=== PATIENT | male | born 1995 | race Caucasian/White ===

== ENCOUNTER 2016-08-14 21:03 | Emergency (ER) | payer SELFPAY ==
[~2016-08-14] VITALS: Ht 165.1 cm; Wt 72.0 kg
[2016-08-15 02:44] VITALS: BP 120/75
== END 2016-08-15 03:38 | disposition home or self-care (01) ==
LOC: ER 21:04
DX: T16.1XXA Foreign body in right ear, initial encounter (principal); X58.XXXA Exposure to other specified factors, initial encounter; Y93.89 Activity, other specified; Y92.89 Other specified places as the place of occurrence of the external cause; Y99.8 Other external cause status
CPT/HCPCS: 99283; X7700; Z7610

== ENCOUNTER 2018-02-24 01:03 | Emergency (ER) | payer MEDICAID ==
[~2018-02-24] VITALS: Ht 154.9 cm; Wt 79.1 kg
[2018-02-24] MEDS ORDERED: KETOROLAC 30MG/ML VIAL IV STA (02:55)
[2018-02-24] MEDS ORDERED: MAGNESIUM/ALUMINUM HYDROXIDE/SIMETHICONE 30ML UDC PO STA (02:55)
[2018-02-24] MEDS ORDERED: VISCOUS LIDOCAINE 2% 15 ML UDC PO STA (02:55)
[2018-02-24 03:25] LABS: BASOPHILS % 0.7 % (0.0-2.0); EOSINOPHILS % 1.3 % (0.0-5.0); HEMATOCRIT. 44.8 % (42.0-52.0); HEMOGLOBIN. 15.3 g/dL (14.0-18.0); LYMPHOCYTES % 33.4 % (20.0-50.0); MEAN CORPUSCULAR HEMOGLOBIN 32.5 pg (28.0-32.0); MEAN CORPUSCULAR VOLUME 95.1 fL (80.0-94.0); NEUTROPHILS % 55.6 % (40.0-76.0); PLATELET 289 x1000/uL (130-400); RED BLOOD CELL COUNT 4.71 mill/uL (4.7-6.1); RED CELL DISTRIBUTION WIDTH 13.2 % (11.6-14.6)
[2018-02-24 03:29] LABS: CLARITY URINE CLEAR (CLEAR); COLOR URINE YELLOW (YELLOW); KETONES URINE NEGATIVE (NEGATIVE); LEUKOCYTE ESTERASE URINE TRACE (NEGATIVE); NITRITE URINE NEGATIVE (NEGATIVE); OCCULT BLOOD URINE NEGATIVE (NEGATIVE); PH URINE 5.5 (4.5-8.0); PROTEIN URINE NEGATIVE (NEGATIVE); SPECIFIC GRAVITY URINE 1.021 (1.005-1.030)
[2018-02-24 03:33] LABS: INR 1.1; PARTIAL THROMBOPLASTIN TIME 27.3 sec (23.4-31.0); PROTHROMBIN TIME 10.7 sec (9.1-11.1)
[2018-02-24 03:36] LABS: CHLORIDE 100 mEq/L (98-107)
[2018-02-24 04:43] VITALS: BP 115/52
== END 2018-02-24 04:36 | disposition home or self-care (01) ==
LOC: ER 01:03 → CANBEDREQ 05:41
DX: K29.20 Alcoholic gastritis without bleeding (principal); K76.0 Fatty (change of) liver, not elsewhere classified; K82.4 Cholesterolosis of gallbladder; Y90.9 Presence of alcohol in blood, level not specified; F10.20 Alcohol dependence, uncomplicated
CPT/HCPCS: 36415; 76700; 80053; 81003; 83690; 85025; 85610; 85730; 93005; 96374; 99285; J1885

== ENCOUNTER 2021-05-13 06:57 | Emergency (ER) | payer MEDICAID ==
[~2021-05-13] VITALS: Ht 154.9 cm; Wt 82.0 kg
[2021-05-13] MEDS ORDERED: IBUPROFEN 400MG TABLET PO ONE (11:30)
[2021-05-13] MEDS ORDERED: ACETAMINOPHEN 325MG TABLET PO ONE (11:30)
[2021-05-13] MEDS ORDERED: TETANUS, DIPHTHERIA, PERTUSSIS VAC/PF 0.5ML (>10YR OLD) IM ONE (11:30)
[2021-05-13 13:45] VITALS: BP 107/65
== END 2021-05-13 13:49 | disposition home or self-care (01) ==
LOC: ER 06:57
DX: S52.124A Nondisplaced fracture of head of right radius, initial encounter for closed fracture (principal); S50.811A Abrasion of right forearm, initial encounter; F15.10 Other stimulant abuse, uncomplicated; F10.10 Alcohol abuse, uncomplicated; Y90.9 Presence of alcohol in blood, level not specified; Y04.0XXA Assault by unarmed brawl or fight, initial encounter; Y93.89 Activity, other specified; Y92.018 Other place in single-family (private) house as the place of occurrence of the external cause
CPT/HCPCS: 70450; 73080; 73090; 90471; 90715; 99284; Z7610

== ENCOUNTER 2024-06-01 03:52 | Emergency (ER) | payer MEDICAID, OTHER ==
[~2024-06-01] VITALS: Ht 157.5 cm; Wt 80.0 kg
[2024-06-01 04:03] VITALS: O2SAT 100
[2024-06-01 05:00] VITALS: BP 120/80; PULSE 109; RESP 18; TEMP 37.00296; O2SAT 99
[2024-06-01 05:12] LABS: BASOPHILS % 0.4 % (0.0-2.0); HEMATOCRIT. 44.8 % (42.0-52.0); HEMOGLOBIN. 15.5 g/dL (14.0-18.0); LYMPHOCYTES % 16.5 % (20.0-50.0); MEAN CORPUSCULAR HEMOGLOBIN 32.9 pg (28.0-32.0); MEAN CORPUSCULAR HGB CONC 34.6 g/dL (31.0-37.0); MEAN CORPUSCULAR VOLUME 95.2 fL (80.0-94.0); MEAN PLATELET VOLUME 7.9 fl (7.4-10.4); MONOCYTES % 8.3 % (2.0-8.0); NEUTROPHILS % 74.8 % (40.0-76.0); PLATELET 302 x1000/uL (130-400); RED BLOOD CELL COUNT 4.71 mill/uL (4.7-6.1); RED CELL DISTRIBUTION WIDTH 13.4 % (11.6-14.6); WHITE BLOOD COUNT 11.1 x1000/uL (4.5-11.0)
[2024-06-01 05:20] LABS: CLARITY URINE CLOUDY (CLEAR); COLOR URINE DARK YELLOW (YELLOW); GLUCOSE URINE NEGATIVE (NEGATIVE); KETONES URINE 3+ (NEGATIVE); LEUKOCYTE ESTERASE URINE NEGATIVE (NEGATIVE); NITRITE URINE NEGATIVE (NEGATIVE); OCCULT BLOOD URINE NEGATIVE (NEGATIVE); PH URINE 5.5 (4.5-8.0); PROTEIN URINE TRACE (NEGATIVE); SPECIFIC GRAVITY URINE 1.036 (1.005-1.030)
[2024-06-01 05:25] LABS: *AMPHETAMINES SCREEN URINE PRESUMPTIVE POSITIVE (NEGATIVE); *BARBITURATES SCREEN URINE NEGATIVE (NEGATIVE); *BENZODIAZEPINES SCREEN URINE NEGATIVE (NEGATIVE); *COCAINE SCREEN URINE NEGATIVE (NEGATIVE); CANNABINOID URINE SCREEN NEGATIVE (NEGATIVE); ECSTASY MDMA SCREEN URINE CONF.TEST INDICATED (NEGATIVE); METHADONE URINE SCREEN NEGATIVE (NEGATIVE); OPIATES URINE SCREEN NEGATIVE (NEGATIVE); PHENCYCLIDINE URINE SCREEN NEGATIVE (NEGATIVE)
[2024-06-01 05:27] LABS: CHLORIDE 104 mEq/L (98-107); SODIUM 139 mEq/L (136-145)
[2024-06-01 05:28] LABS: CALCIUM 9.9 mg/dL (8.7-10.4); CARBON DIOXIDE 20 mEq/L (21-32)
[2024-06-01 05:33] LABS: CREATININE 0.9 mg/dL (0.6-1.3); GLUCOSE 109 mg/dL (70-105); UREA NITROGEN BLOOD 15 mg/dL (9-23)
[2024-06-01 05:35] LABS: ACETAMINOPHEN < 2 ug/mL (10-30)
[2024-06-01 05:42] LABS: ETHANOL BLOOD < 10 mg/dL (<10)
[2024-06-01 06:26] LABS: SQUAMOUS EPITHELIAL CELL URINE FEW /lpf (RARE/1+)
[2024-06-01 06:27] LABS: BACTERIA URINE NONE SEEN; RBC URINE 0-2 /hpf (0-2)
== END 2024-06-01 09:21 | disposition home or self-care (01) ==
LOC: ER 03:52
DX: Z00.00 Encounter for general adult medical examination without abnormal findings (principal); R45.851 Suicidal ideations; F10.90 Alcohol use, unspecified, uncomplicated; Z59.00 Homelessness unspecified; Y90.9 Presence of alcohol in blood, level not specified; Z79.899 Other long term (current) drug therapy; Z20.822 Contact with and (suspected) exposure to COVID-19
CPT/HCPCS: 36415; 80048; 80305; 80307; 80320; 80329; 81003; 85025; 87426; 99283; G0480